=== PATIENT | male | born 1985 | race Caucasian/White ===

== ENCOUNTER 2017-01-04 15:42 | Emergency (ER) | payer MEDICAID, OTHER ==
[~2017-01-04] VITALS: Ht 177.8 cm; Wt 115.0 kg
[2017-01-04] MEDS ORDERED: SODIUM CHLORIDE FLUSH 10ML SYR IVF ONE (16:00)
[2017-01-04] MEDS ORDERED: HYDROmorphone 1 MG/ML, 1ML IVPush PRN (16:00)
[2017-01-04] MEDS ORDERED: ONDANSETRON 2MG/ML, 2ML IVPush ONE (16:00)
[2017-01-04 16:11] LABS: HEMATOCRIT 33.2 % (39.2-51.8); HEMOGLOBIN 11.1 g/dL (13.7-18.0); WHITE BLOOD COUNT 11.7 x10^3/uL (3.4-10)
[2017-01-04] MEDS ORDERED: HYDROmorphone 1 MG/ML, 1ML ONE (16:15)
[2017-01-04] MEDS ORDERED: ONDANSETRON 2MG/ML, 2ML ONE (16:15)
[2017-01-04 16:20] LABS: ASPARTATE AMINO TRANSFERASE 34 U/L (15-37); BLOOD UREA NITROGEN 7 mg/dL (7-18)
[2017-01-04 17:30] VITALS: BP 124/84
== END 2017-01-04 17:45 | disposition home or self-care (01) ==
LOC: ED 16:23
DX: M54.5 Low back pain (principal)
CPT/HCPCS: 36415; 74176; 80053; 81003; 83690; 85025; 96374; 96375; 99285; J1170; J2405

== ENCOUNTER 2019-03-05 16:08 | Emergency (ER) | payer MEDICAID ==
[~2019-03-05] VITALS: Ht 185.4 cm; Wt 112.0 kg
[2019-03-05] MEDS ORDERED: ONDANSETRON ODT 4 MG PO ONE (16:30)
[2019-03-05 17:04] LABS: BASOPHILS # (AUTO) 0.01 x10^3/uL (0-0.1); BASOPHILS % (AUTO) 0 % (0-1); EOSINOPHILS # (AUTO) 0.03 x10^3/uL (0-0.4); EOSINOPHILS % (AUTO) 0 % (1-7); LYMPHOCYTES # (AUTO) 0.96 x10^3/uL (1-3.4); LYMPHOCYTES % (AUTO) 11 % (22-44); MD NO; MEAN CORPUSCULAR HEMOGLOBIN 28.9 pg (27.5-34.5); MEAN CORPUSCULAR HGB CONC 32.7 g/dL (33.2-36.2); MEAN CORPUSCULAR VOLUME 88.4 fL (81-97); MEAN PLATELET VOLUME 7.5 fL (7.4-10.4); MONOCYTES % (AUTO) 2 % (2-9); NEUTROPHILS # (AUTO) 7.22 x10^3/uL (1.8-6.8); NEUTROPHILS % (AUTO) 86 % (42-75); PLATELET COUNT 474 x10^3/uL (130-400); RED BLOOD COUNT 5.56 x10^6/uL (4.38-5.82); RED CELL DISTRIBUTION WIDTH 14.1 % (9.4-14.8)
[2019-03-05 17:12] LABS: ALANINE AMINOTRANSFERASE 36 U/L (12-78); ALBUMIN 4.2 g/dL (3.4-5.0); ANION GAP 8 mmol/L (5-15); CALCIUM 9.3 mg/dL (8.5-10.1); CHLORIDE 108 mmol/L (98-107); CREATININE 0.95 mg/dL (0.7-1.3)
[2019-03-05 17:14] LABS: ALKALINE PHOSPHATASE 89 U/L (45-117); BILIRUBIN,TOTAL 0.7 mg/dL (0.2-1.0); TOTAL PROTEIN 9.7 g/dL (6.4-8.2)
--- NOTE | 2019-03-05 18:14 | NUR ---
TO [facility] FROM LOBBY
--- NOTE | 2019-03-05 18:35 | NUR ---
PT HERE FOR WITHDRAWAL OF HEROINE. PT REPORTS THAT HE HAS BEEN USING FOR 4 YEARS AND HAS NEVER BEEN CLEAN IN THOSE 4 YEARS. PT REPORTS HE HAS NO RESOURCES BUT DOES HAVE INSURANCE. PT REPORTS NOT TAKING ANY PERSCRIBED MEDICATIONS. PT REPORTS N/V/D AND CHILLS AND FEVERS AT HOME. PT HAS STOPPED USING HEROINE FOR 24 HOURS NOW. PT CONNECTED TO MONITORS AND CALL LIGHT IN REACH. PT FREDERIC AND AWARE AT THIS TIME.
[2019-03-05] MEDS ORDERED: KETOROLAC 30 MG/1 ML IM ONE (19:00)
[2019-03-05] MEDS ORDERED: PROMETHAZINE 25 MG/ML, 1ML IM ONE (19:00)
[2019-03-05] MEDS ORDERED: PROMETHAZINE 25 MG/ML, 1ML ONE (19:02)
[2019-03-05] MEDS ORDERED: KETOROLAC 60 MG/2 ML ONE (19:03)
--- NOTE | 2019-03-05 19:08 | NUR ---
PT MEDICATED ORDERED.
--- NOTE | 2019-03-05 19:18 | NUR ---
PT STATES HE CANNOT URINATE AT THIS TIME AND REFUSES TO TRY.
[2019-03-05 19:19] VITALS: BP 150/109
== END 2019-03-05 20:07 | disposition home or self-care (01) ==
LOC: ED 20:00
DX: F10.10 Alcohol abuse, uncomplicated (principal); Z72.9 Problem related to lifestyle, unspecified; R11.2 Nausea with vomiting, unspecified; R19.7 Diarrhea, unspecified; R10.9 Unspecified abdominal pain; R50.9 Fever, unspecified; I50.9 Heart failure, unspecified; F17.200 Nicotine dependence, unspecified, uncomplicated
CPT/HCPCS: 36415; 80053; 85025; 96372; 99283; J1885; J2550

== ENCOUNTER 2019-06-04 14:53 | Inpatient (IN) | payer MEDICAID ==
[~2019-06-04] VITALS: Ht 190.5 cm; Wt 118.0 kg
[2019-06-04] MEDS ORDERED: MORPHINE SULFATE 4 MG/ML, 1ML IVPush ONE (15:30)
[2019-06-04] MEDS ORDERED: SODIUM CHLORIDE 0.9% 1,000ML IVBOLUS ONE (15:30)
[2019-06-04] MEDS ORDERED: VANCOMYCIN PER PHARMACY MC ONE (15:30)
[2019-06-04] MEDS ORDERED: VANCOMYCIN 2,200 MG in SODIUM CHLORIDE 0.9% 500 ML IV ONE (15:30)
[2019-06-04 15:38] LABS: BASOPHILS # (AUTO) 0.01 x10^3/uL (0-0.1); BASOPHILS % (AUTO) 0 % (0-1); EOSINOPHILS % (AUTO) 1 % (1-7); LYMPHOCYTES # (AUTO) 1.45 x10^3/uL (1-3.4); LYMPHOCYTES % (AUTO) 12 % (22-44); MD NO; MEAN CORPUSCULAR HEMOGLOBIN 28.9 pg (27.5-34.5); MEAN CORPUSCULAR HGB CONC 33.2 g/dL (33.2-36.2); MEAN PLATELET VOLUME 7.4 fL (7.4-10.4); MONOCYTES # (AUTO) 0.88 x10^3/uL (0.2-0.8); MONOCYTES % (AUTO) 7 % (2-9); NEUTROPHILS # (AUTO) 9.76 x10^3/uL (1.8-6.8); NEUTROPHILS % (AUTO) 80 % (42-75); PLATELET COUNT 410 x10^3/uL (130-400); RED BLOOD COUNT 4.41 x10^6/uL (4.38-5.82); RED CELL DISTRIBUTION WIDTH 14.1 % (9.4-14.8)
[2019-06-04 15:50] LABS: ALANINE AMINOTRANSFERASE 35 U/L (12-78); ALBUMIN 2.8 g/dL (3.4-5.0); ANION GAP 11 mmol/L (5-15); CALCIUM 8.3 mg/dL (8.5-10.1); CHLORIDE 108 mmol/L (98-107)
[2019-06-04 15:53] LABS: ALKALINE PHOSPHATASE 103 U/L (45-117); BILIRUBIN,TOTAL 0.3 mg/dL (0.2-1.0); TOTAL PROTEIN 8.4 g/dL (6.4-8.2)
[2019-06-04] MEDS ORDERED: MORPHINE SULFATE 4 MG/ML, 1ML ONE (16:09)
--- NOTE | 2019-06-04 16:11 | NUR ---
BREAK RN: PT NEEDS ONE MORE BLOOD CULTURE BEFORE ABX CAN BE GIVEN. PROVIDER AWARE. LAB AWARE. VS STABLE. PT WATCHING TV. NO ACUTE DISTRESS NOTED. WILL CONITNUE TO MONITOR.
--- NOTE | 2019-06-04 16:33 | NUR ---
REPORT GIVEN TO MARCO ANTONIO SINGLETARY
[2019-06-04] MEDS: AMPICILLIN/SULBACTAM 3 GM in SODIUM CHLORIDE 0.9% 100 ML IV SCH ×2 (16:48→22:00)
--- NOTE | 2019-06-04 17:05 | NUR ---
Patient resting in bed, IV ABX infusing, NSS infusing. Patient appears uncomfortable pain is 9/10. Patient aware of plan of care. call light within reach
--- NOTE | 2019-06-04 17:51 | NUR ---
Patient resting in bed, watching TV. IV abx infusing.
--- NOTE | 2019-06-04 18:13 | NUR ---
Report Given to [place] BERNARD
[2019-06-04] MEDS ORDERED: HYDROmorphone 1 MG/ML, 1ML INJ ONE (18:30)
[2019-06-04] MEDS ORDERED: HYDROmorphone 2 MG/ML, 1ML IVPush ONE (18:30)
--- NOTE | 2019-06-04 18:38 | NUR ---
Patient to CT with Tech, medicated per order for pain
--- NOTE | 2019-06-04 19:02 | NUR ---
Patient returned from CT and IV abx infusing. Patient transported with all his belongings to the floor with Tech.
[2019-06-04] MEDS ORDERED: OMNIPAQUE 350 MG/ML, 100ML BOTTLE ONE (19:13)
[2019-06-04] MEDS ORDERED: SODIUM CHLORIDE 0.9% 1,000 ML IV SCH (19:22)
[2019-06-04] MEDS ORDERED: OXYcodone IR 5MG TABLET PO PRN (19:30)
[2019-06-04] MEDS ORDERED: ONDANSETRON ODT 4 MG PO PRN (19:30)
[2019-06-04] MEDS ORDERED: POLYETHYLENE GLYCOL 17 GM PACKET PO PRN (19:30)
[2019-06-04] MEDS ORDERED: BISACODYL 10 MG SUPP PR PRN (19:30)
[2019-06-04] MEDS ORDERED: VANCOMYCIN PER PHARMACY MC PRN (19:30)
[2019-06-04 19:43] VITALS: BP 131/70
[2019-06-04] MEDS ORDERED: PHARMACOKINETIC MONITORING MC PRN (20:30)
[2019-06-04] MEDS ORDERED: PHARMACOKINETIC CONSULTATION MC ONE (20:30)
[2019-06-04] MEDS: HEPARIN 5,000 UNITS/ML, 1ML SQ SCH ×2 (22:00→22:19)
[2019-06-04] MEDS: POTASSIUM CHLORIDE 20 MEQ TAB.ER.PRT PO SCH (22:18)
[2019-06-04] MEDS: MORPHINE SULFATE 4 MG/ML, 1ML IVPush PRN (22:41)
[2019-06-04] MEDS: VANCOMYCIN 2,000 MG in SODIUM CHLORIDE 0.9% 500 ML IV SCH (23:20)
[2019-06-04 23:25] LABS: MICROSCOPIC NOT IND
[2019-06-04 23:27] LABS: CULTURE INDICATED? NO
[2019-06-05] MEDS: HYDROmorphone 2 MG/ML, 1ML IVPush PRN ×6 (00:15→17:36)
[2019-06-05 01:15] VITALS: BP 117/57
[2019-06-05] MEDS: AMPICILLIN/SULBACTAM 3 GM in SODIUM CHLORIDE 0.9% 100 ML IV SCH ×5 (03:24→20:19)
[2019-06-05 05:36] LABS: ANION GAP 8 mmol/L (5-15); CALCIUM 7.8 mg/dL (8.5-10.1); CHLORIDE 109 mmol/L (98-107); CREATININE 0.86 mg/dL (0.7-1.3); MEAN CORPUSCULAR HEMOGLOBIN 28.8 pg (27.5-34.5); MEAN CORPUSCULAR HGB CONC 33.2 g/dL (33.2-36.2); MEAN CORPUSCULAR VOLUME 86.9 fL (81-97); MEAN PLATELET VOLUME 7.8 fL (7.4-10.4); PLATELET COUNT 350 x10^3/uL (130-400); RED BLOOD COUNT 3.95 x10^6/uL (4.38-5.82); RED CELL DISTRIBUTION WIDTH 14.3 % (9.4-14.8)
[2019-06-05] MEDS: HEPARIN 5,000 UNITS/ML, 1ML SQ SCH ×3 (06:00→22:00)
[2019-06-05 06:02] LABS: BASOPHILS # (AUTO) 0.03 x10^3/uL (0-0.1); BASOPHILS % (AUTO) 0 % (0-1); EOSINOPHILS # (AUTO) 0.13 x10^3/uL (0-0.4); EOSINOPHILS % (AUTO) 1 % (1-7); LYMPHOCYTES # (AUTO) 1.33 x10^3/uL (1-3.4); LYMPHOCYTES % (AUTO) 10 % (22-44); MD SCAN; MONOCYTES # (AUTO) 1.19 x10^3/uL (0.2-0.8); MONOCYTES % (AUTO) 9 % (2-9); NEUTROPHILS # (AUTO) 11.24 x10^3/uL (1.8-6.8); NEUTROPHILS % (AUTO) 81 % (42-75)
[2019-06-05] MEDS: MORPHINE SULFATE 4 MG/ML, 1ML IVPush PRN (06:13)
[2019-06-05 07:14] VITALS: BP 104/58
[2019-06-05] MEDS: SENNA/DOCUSATE TABLET PO SCH (07:44)
[2019-06-05] MEDS: POTASSIUM CHLORIDE 20 MEQ TAB.ER.PRT PO SCH ×2 (07:50→17:11)
[2019-06-05] MEDS: KETOROLAC 30 MG/1 ML IV PRN ×3 (07:50→20:19)
[2019-06-05] MEDS: VANCOMYCIN 2,000 MG in SODIUM CHLORIDE 0.9% 500 ML IV SCH ×2 (10:55→23:06)
[2019-06-05 12:41] VITALS: BP 134/74
[2019-06-05] MEDS: ACETAMINOPHEN 325 MG TABLET PO PRN ×2 (13:26→20:20)
[2019-06-05] MEDS ORDERED: BUPIVACAINE/PF-EPI 0.25% 1:200K ONE (15:23)
[2019-06-05] MEDS ORDERED: FENTANYL PF 250 MCG/5ML ONE ×2 (15:30→16:39)
[2019-06-05] MEDS ORDERED: MIDAZOLAM 1 MG/ML, 2ML ONE (15:30)
[2019-06-05] MEDS ORDERED: LABETALOL 5MG/ML, 20ML IV PRN (16:30)
[2019-06-05] MEDS ORDERED: DIAZEPAM 5 MG/ML, 2ML IVPush PRN (16:30)
[2019-06-05] MEDS ORDERED: ALBUTEROL SULFATE 2.5 MG/3 ML NPPB PRN (16:30)
[2019-06-05] MEDS ORDERED: MEPERIDINE/PF 25MG/0.5ML IVPush PRN (16:30)
[2019-06-05] MEDS ORDERED: ACETAMINOPHEN 325 MG TABLET PO PRN (16:30)
[2019-06-05] MEDS ORDERED: PROMETHAZINE 25 MG/ML, 1ML IV PRN (16:30)
[2019-06-05] MEDS ORDERED: KETOROLAC 30 MG/1 ML IV PRN (16:30)
[2019-06-05] MEDS ORDERED: OXYcodone 5 MG/5 ML ORAL.SOL UDC PO PRN (16:30)
[2019-06-05] MEDS ORDERED: hydrALAzine 20 MG/ML, 1ML IV PRN (16:30)
[2019-06-05] MEDS ORDERED: SUCCINYLCHOLINE 20 MG/ML, 10ML ONE (16:50)
[2019-06-05] MEDS ORDERED: CEFAZOLIN 1,000 MG ONE (16:50)
[2019-06-05] MEDS ORDERED: DEXAMETHASONE 4 MG/ML, 1ML ONE (16:50)
[2019-06-05] MEDS ORDERED: NEOSTIGMINE 1 MG/ML, 10ML ONE (16:50)
[2019-06-05] MEDS ORDERED: PROPOFOL 10 MG/ML, 20ML ONE (16:50)
[2019-06-05] MEDS ORDERED: ONDANSETRON 2MG/ML, 2ML ONE (16:50)
[2019-06-05] MEDS ORDERED: GLYCOPYRROLATE 0.2MG/1ML, 5ML ONE (16:50)
[2019-06-05] MEDS ORDERED: ROCURONIUM 10MG/ML,5ML ONE (16:50)
[2019-06-05] MEDS ORDERED: FENTANYL PF 100 MCG/2ML ONE (16:54)
[2019-06-05] MEDS ORDERED: HYDROmorphone 2 MG/ML, 1ML ONE (16:55)
[2019-06-05] MEDS: FENTANYL PF 100 MCG/2ML IV PRN ×2 (17:08→17:19)
[2019-06-05 20:02] VITALS: BP 125/62
[2019-06-05] MEDS: SODIUM CHLORIDE 0.9% 1,000 ML IV SCH (20:19)
[2019-06-06 00:19] VITALS: BP 121/85
[2019-06-06] MEDS: AMPICILLIN/SULBACTAM 3 GM in SODIUM CHLORIDE 0.9% 100 ML IV SCH ×4 (01:44→21:04)
[2019-06-06] MEDS: ACETAMINOPHEN 325 MG TABLET PO PRN (01:45)
[2019-06-06] MEDS: KETOROLAC 30 MG/1 ML IV PRN ×4 (01:45→21:04)
[2019-06-06 03:43] VITALS: BP 118/71
[2019-06-06] MEDS: HEPARIN 5,000 UNITS/ML, 1ML SQ SCH ×4 (04:31→22:37)
[2019-06-06 04:56] LABS: MEAN CORPUSCULAR HEMOGLOBIN 28.7 pg (27.5-34.5); MEAN CORPUSCULAR HGB CONC 32.7 g/dL (33.2-36.2); MEAN CORPUSCULAR VOLUME 87.8 fL (81-97); MEAN PLATELET VOLUME 7.7 fL (7.4-10.4); PLATELET COUNT 354 x10^3/uL (130-400); RED BLOOD COUNT 3.79 x10^6/uL (4.38-5.82); RED CELL DISTRIBUTION WIDTH 14.3 % (9.4-14.8)
[2019-06-06 05:09] LABS: ANION GAP 5 mmol/L (5-15); CALCIUM 7.7 mg/dL (8.5-10.1); CHLORIDE 110 mmol/L (98-107)
[2019-06-06 05:11] LABS: % IRON SATURATION 11 % (20-55); CREATININE 0.78 mg/dL (0.7-1.3); IRON LEVEL 21 mcg/dL (65-175); TOTAL IRON BINDING CAPACITY 194 mcg/dL (250-450)
[2019-06-06 05:48] LABS: BASOPHILS # (AUTO) 0.05 x10^3/uL (0-0.1); BASOPHILS % (AUTO) 0 % (0-1); EOSINOPHILS # (AUTO) 0.06 x10^3/uL (0-0.4); EOSINOPHILS % (AUTO) 0 % (1-7); LYMPHOCYTES # (AUTO) 1.43 x10^3/uL (1-3.4); LYMPHOCYTES % (AUTO) 10 % (22-44); MD SCAN; MONOCYTES # (AUTO) 1.03 x10^3/uL (0.2-0.8); MONOCYTES % (AUTO) 8 % (2-9); NEUTROPHILS # (AUTO) 11.13 x10^3/uL (1.8-6.8); NEUTROPHILS % (AUTO) 81 % (42-75)
[2019-06-06 06:58] VITALS: BP 129/77
[2019-06-06] MEDS: SENNA/DOCUSATE TABLET PO SCH (07:59)
[2019-06-06] MEDS: OXYcodone IR 5MG TABLET PO PRN ×3 (09:33→19:28)
[2019-06-06] MEDS: VANCOMYCIN 2,000 MG in SODIUM CHLORIDE 0.9% 500 ML IV SCH ×2 (11:05→18:34)
[2019-06-06 12:16] VITALS: BP 153/80
[2019-06-06] MEDS: SODIUM CHLORIDE 0.9% 1,000 ML IV SCH (14:05)
[2019-06-06 19:05] VITALS: BP 139/75
[2019-06-07] MEDS: VANCOMYCIN 2,000 MG in SODIUM CHLORIDE 0.9% 500 ML IV SCH ×3 (02:05→22:30)
[2019-06-07] MEDS: OXYcodone IR 5MG TABLET PO PRN ×6 (02:09→22:02)
[2019-06-07 02:18] VITALS: BP 137/79
[2019-06-07] MEDS: KETOROLAC 30 MG/1 ML IV PRN ×4 (04:23→22:29)
[2019-06-07] MEDS: AMPICILLIN/SULBACTAM 3 GM in SODIUM CHLORIDE 0.9% 100 ML IV SCH ×3 (04:23→16:08)
[2019-06-07 05:01] LABS: BASOPHILS # (AUTO) 0.03 x10^3/uL (0-0.1); BASOPHILS % (AUTO) 0 % (0-1); EOSINOPHILS % (AUTO) 5 % (1-7); LYMPHOCYTES # (AUTO) 2.21 x10^3/uL (1-3.4); LYMPHOCYTES % (AUTO) 26 % (22-44); MD NO; MEAN CORPUSCULAR HEMOGLOBIN 28.5 pg (27.5-34.5); MEAN CORPUSCULAR HGB CONC 32.7 g/dL (33.2-36.2); MEAN PLATELET VOLUME 7.9 fL (7.4-10.4); MONOCYTES # (AUTO) 0.61 x10^3/uL (0.2-0.8); MONOCYTES % (AUTO) 7 % (2-9); NEUTROPHILS # (AUTO) 5.27 x10^3/uL (1.8-6.8); NEUTROPHILS % (AUTO) 62 % (42-75); PLATELET COUNT 373 x10^3/uL (130-400); RED BLOOD COUNT 4.05 x10^6/uL (4.38-5.82); RED CELL DISTRIBUTION WIDTH 14.3 % (9.4-14.8)
[2019-06-07 07:19] VITALS: BP 130/81
[2019-06-07] MEDS: SENNA/DOCUSATE TABLET PO SCH (08:20)
[2019-06-07] MEDS: CALCIUM/VITAMIN D3 250-125 TABLET PO SCH ×2 (08:20→20:17)
[2019-06-07] MEDS ORDERED: SILVER NITRATE STICK TP ONE (10:00)
[2019-06-07 13:26] VITALS: BP 150/81
[2019-06-07] MEDS: HEPARIN 5,000 UNITS/ML, 1ML SQ SCH ×2 (14:08→20:17)
[2019-06-07 18:57] VITALS: BP 126/73
[2019-06-07] MEDS ORDERED: SODIUM CHLORIDE 0.9% 1,000 ML IV SCH (19:22)
[2019-06-08 01:05] VITALS: BP 122/67
[2019-06-08] MEDS: AMPICILLIN/SULBACTAM 3 GM in SODIUM CHLORIDE 0.9% 100 ML IV SCH ×2 (01:06→08:59)
[2019-06-08] MEDS: HEPARIN 5,000 UNITS/ML, 1ML SQ SCH ×2 (01:06→14:00)
[2019-06-08] MEDS: OXYcodone IR 5MG TABLET PO PRN ×5 (02:27→17:49)
[2019-06-08] MEDS: KETOROLAC 30 MG/1 ML IV PRN ×2 (06:12→14:10)
[2019-06-08] MEDS: VANCOMYCIN 2,000 MG in SODIUM CHLORIDE 0.9% 500 ML IV SCH (06:12)
[2019-06-08 07:33] VITALS: BP 127/79
[2019-06-08] MEDS: CALCIUM/VITAMIN D3 250-125 TABLET PO SCH (08:59)
[2019-06-08] MEDS: SENNA/DOCUSATE TABLET PO SCH (09:00)
[2019-06-08] MEDS ORDERED: DOXYCYCLINE 100MG TABLET PO SCH (10:30)
[2019-06-08] MEDS ORDERED: CEPHALEXIN 500 MG CAPSULE PO SCH (10:30)
[2019-06-08] MEDS ORDERED: DOXY100T PO (11:53)
[2019-06-08] MEDS ORDERED: SENN-193 PO (11:53)
[2019-06-08] MEDS ORDERED: CEPH-376 PO (11:53)
[2019-06-08] MEDS ORDERED: IBUP-1222 PO (11:53)
[2019-06-08] MEDS ORDERED: CALC1TAB68 PO (11:53)
[2019-06-08 13:31] VITALS: BP 129/68
[2019-06-08] MEDS ORDERED: HYDROmorphone 1 MG/ML, 1ML INJ IV ONE (17:00)
[2019-06-08] MEDS ORDERED: SODIUM CHLORIDE 0.9% 1,000 ML IV SCH (19:22)
== END 2019-06-08 18:00 | disposition home or self-care (01) | DRG 872 ==
LOC: ED 16:10 → EDIP 17:38 → 3N 19:40 → 4NE 06-05 18:01
PROVIDERS: ADMIT Emergency Medicine; ATTEND Emergency Medicine
PROC: 0Y970ZZ Drainage of Right Femoral Region, Open Approach (ICD-10-PCS; 2019-06-05)
PROC: 0Y910ZZ Drainage of Left Buttock, Open Approach (ICD-10-PCS; principal; 2019-06-05 15:15)
DX: A41.9 Sepsis, unspecified organism (principal); L02.31 Cutaneous abscess of buttock; B19.20 Unspecified viral hepatitis C without hepatic coma; D50.9 Iron deficiency anemia, unspecified; E66.9 Obesity, unspecified; Z68.32 Body mass index [BMI] 32.0-32.9, adult; E83.51 Hypocalcemia; Z88.8 Allergy status to other drugs, medicaments and biological substances; E87.6 Hypokalemia; F11.90 Opioid use, unspecified, uncomplicated; F15.90 Other stimulant use, unspecified, uncomplicated; F17.210 Nicotine dependence, cigarettes, uncomplicated; F19.10 Other psychoactive substance abuse, uncomplicated; G47.00 Insomnia, unspecified
CPT/HCPCS: 36415; 74177; 80048; 80053; 80074; 80202; 81003; 82330; 83540; 83550; 83605; 83735; 85025; 87040; 87070; 87075; 87076; 87077; 87147; 87186; 87205; 87521; 87806; 93005; 96361; 96374; 99285; G0378; J0295; J0690; J1100; J1170; J1644; J1885; J2250; J2405; J2704; J2710; J3010; J3370; Q9967; G0475; J0330; J2270; J7030; J7040

== ENCOUNTER → 2019-06-12 | Outpatient (CLI) | payer MEDICAID ==
[~2019-06-12] MED LIST: CALC1TAB68 PO; CEPH-376 PO; DOXY100T PO; IBUP-1222 PO; SENN-193 PO
== END | disposition home or self-care (01) ==
LOC: WOUND 09:06
PROVIDERS: ATTEND Internal Medicine
DX: T81.89XA Other complications of procedures, not elsewhere classified, initial encounter (principal); L02.31 Cutaneous abscess of buttock; E66.9 Obesity, unspecified; F19.10 Other psychoactive substance abuse, uncomplicated; F17.210 Nicotine dependence, cigarettes, uncomplicated; Z68.32 Body mass index [BMI] 32.0-32.9, adult; Y83.8 Other surgical procedures as the cause of abnormal reaction of the patient, or of later complication, without mention of misadventure at the time of the procedure; Y92.89 Other specified places as the place of occurrence of the external cause
CPT/HCPCS: 11043; 11046; 97605